=== PATIENT | male | born 1970 | race Caucasian/White ===

== ENCOUNTER 2016-06-11 18:10 | Emergency (ER) | payer BC ==
[~2016-06-11] VITALS: Ht 182.9 cm; Wt 86.2 kg
[~2016-06-11 18:10] MED LIST: CEPH500C3 PO; LISI10TA PO; TYLE3 PO; VERA120T3 PO
[2016-06-11 18:25] VITALS: BP 164/107; PULSE 85; RESP 16; TEMP 98.5; O2SAT 98
[2016-06-11] MEDS ORDERED: LISI-515 PO (18:31)
[2016-06-11] MEDS ORDERED: VERA120T3 PO (18:31)
[2016-06-11] MEDS ORDERED: SODIUM CHLOR 0.9% 1000 ML INJ 1,000 ML IV ONE (18:46)
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
[2016-06-11] MEDS ORDERED: ACETAMINOPHEN 325 MG TAB PO ONE (19:00)
[2016-06-11] MEDS ORDERED: PROCHLORPERAZINE INJ 10 MG/2 ML VIAL IVP ONE (19:00)
[2016-06-11] MEDS ORDERED: SODIUM CHLORIDE 0.9% FLUSH 10 ML FLUSH IVF PRN (19:00)
[2016-06-11] MEDS ORDERED: diphenhydrAMINE HCL 50 MG/ML VIAL IVP ONE (19:00)
[2016-06-11 19:12] LABS: AUTOMATED NEUTROPHIL # 3.7 TH/MM3 (1.8-7.7); BASOPHIL # 0.1 TH/MM3 (0-0.2); BASOPHIL % 1.5 % (0.0-2.0); EOSINOPHIL # 0.3 TH/MM3 (0-0.4); EOSINOPHIL % 5.2 % (0.0-4.0); HEMATOCRIT 42.8 % (39.0-51.0); HEMO FLAGS DIFF FINAL; LYMPH % 24.5 % (9.0-44.0); LYMPHOCYTE # 1.5 TH/MM3 (1.0-4.8); MEAN CELL VOLUME 93.4 FL (80.0-100.0); MEAN CORPUSCULAR HEMOGLOBIN 32.2 PG (27.0-34.0); MEAN CORPUSCULAR HGB CONC 34.5 % (32.0-36.0); MONO % 6.5 % (0.0-8.0); NEUT % 62.3 % (16.0-70.0); PLATELET COUNT 246 TH/MM3 (150-450); RED BLOOD COUNT 4.59 MIL/MM3 (4.50-5.90); RED CELL DISTRIBUTION WIDTH 12.1 % (11.6-17.2)
[2016-06-11 19:16] VITALS: BP 156/96; PULSE 68; RESP 16; O2SAT 97
[2016-06-11 19:17] VITALS: RESP 16; O2SAT 97
[2016-06-11 19:24] LABS: POTASSIUM 3.9 MEQ/L (3.5-5.1)
[2016-06-11 19:27] LABS: BICARBONATE 28.2 MEQ/L (21.0-32.0)
[2016-06-11 19:50] VITALS: BP 154/91; PULSE 63; RESP 16; O2SAT 96
[2016-06-11 20:00] VITALS: RESP 18
== END 2016-06-11 20:06 | disposition home or self-care (01) ==
LOC: PHEFT 18:10
DX: R51 Headache (principal); I10 Essential (primary) hypertension; E78.00 Pure hypercholesterolemia, unspecified; F17.210 Nicotine dependence, cigarettes, uncomplicated; F10.10 Alcohol abuse, uncomplicated
CPT/HCPCS: 80048; 85025; 96361; 96374; 96375; 99284; J0780; J1200; J7030